=== PATIENT | female | born 1980 | race Caucasian/White ===

== ENCOUNTER 2017-07-03 08:21 | Emergency (ER) | payer OTHER ==
[2017-07-03] MEDS: IBUPROFEN 600 MG TAB PO (09:40)
== END 2017-07-03 09:45 | disposition home or self-care (01) ==
LOC: FTE 08:21
DX: R50.9 Fever, unspecified (principal); J02.9 Acute pharyngitis, unspecified; R51 Headache; M54.5 Low back pain; R05 Cough; R53.81 Other malaise
CPT/HCPCS: 99283; Z7502

== ENCOUNTER 2017-10-06 18:26 | Emergency (ER) | payer OTHER | END 2017-10-06 23:52 | disposition home or self-care (01) | LOC: E/R 18:26 | DX: S50.12XA Contusion of left forearm, initial encounter (principal); S63.502A Unspecified sprain of left wrist, initial encounter; W19.XXXA Unspecified fall, initial encounter; Y92.9 Unspecified place or not applicable | CPT/HCPCS: 29125; 73080-LT; 73110-LT; 99283-25 ==